=== PATIENT | male | born 1965 | race Caucasian/White ===

== ENCOUNTER → 2018-03-14 | Emergency (ER) | payer OTHER | END | disposition home or self-care (01) | LOC: FTE 13:25 | DX: S99.922A Unspecified injury of left foot, initial encounter (principal); X58.XXXA Exposure to other specified factors, initial encounter; Y92.9 Unspecified place or not applicable; Z87.891 Personal history of nicotine dependence | CPT/HCPCS: 73660; 99283-25 ==

== ENCOUNTER 2018-10-12 17:39 | Emergency (ER) | payer OTHER ==
[2018-10-12] MEDS: IBUPROFEN 600 MG TAB PO (18:27)
== END 2018-10-12 19:45 | disposition home or self-care (01) ==
LOC: FTE 19:45
DX: S99.921A Unspecified injury of right foot, initial encounter (principal); X58.XXXA Exposure to other specified factors, initial encounter; Y92.9 Unspecified place or not applicable; Z87.891 Personal history of nicotine dependence
CPT/HCPCS: 73630; 99283-25